=== PATIENT | male | born 1950 | race Caucasian/White ===

== ENCOUNTER → 2016-11-28 | Outpatient (CLI) | payer OTHER ==
[~2016-11-28] MED LIST: ALL300 PO; LISI-461 PO; MVC20 PO; POTASOL PO
[2016-11-28 13:08] LABS: BASO % 0.5 %; BASO ABS # 0.04 K/uL (0-0.2); COMPLETE YES; HEMATOCRIT 37.4 % (42-52); IG% 0.4 %; LYMPH % 19.9 %; LYMPH ABS # 1.62 K/uL (1.2-3.4); MEAN CELL VOLUME 95.2 fL (80-100); MEAN CORPUSCULAR HEMOGLOBIN 32.3 pg (25-34); MEAN PLATELET VOLUME 9.8 fL (7.4-10.4); MONO % 8.6 %; NEUT % 68.6 %; PLATELET COUNT 271 K/uL (130-400); RED BLOOD COUNT 3.93 M/uL (4.7-6.1); WHITE BLOOD COUNT 8.14 K/uL (4.8-10.8)
[2016-11-28 13:28] LABS: BLOOD UREA NITROGEN 11 mg/dl (7-18); CALCIUM 8.8 mg/dl (8.5-10.1); CARBON DIOXIDE 25 mmol/L (21-32); CHLORIDE 107 mmol/L (98-107); CREATININE 0.89 mg/dl (0.60-1.40); GLUCOSE 86 mg/dl (70-99); POTASSIUM 4.2 mmol/L (3.5-5.1); SODIUM 140 mmol/L (136-145)
== END | disposition home or self-care (01) ==
LOC: C.LABMFLN 08:25
PROVIDERS: ATTEND Urology
DX: Z01.812 Encounter for preprocedural laboratory examination (principal); N20.1 Calculus of ureter

== ENCOUNTER → 2016-12-06 | Outpatient (CLI) | payer OTHER ==
[2016-12-06 13:25] LABS: ALT/SGPT 56 U/L (12-78); AST/SGOT 53 U/L (15-37); BLOOD UREA NITROGEN 14 mg/dl (7-18); BUN/CREATININE RATIO 15.1 (10-20); CALCIUM 8.9 mg/dl (8.5-10.1); CARBON DIOXIDE 22 mmol/L (21-32); CHLORIDE 107 mmol/L (98-107); CHOLESTEROL 156 mg/dl (0-200); CREATININE 0.94 mg/dl (0.60-1.40); GLUCOSE 88 mg/dl (70-99); POTASSIUM 4.2 mmol/L (3.5-5.1); SODIUM 139 mmol/L (136-145); TRIGLYCERIDES 78 mg/dl (0-150); URIC ACID 3.6 mg/dl (2.6-7.2); VERY LOW DENSITY LIPOPROT CALC 16 mg/dl
[2016-12-06 13:29] LABS: CHOLESTEROL/HDL RATIO 2.2; HDL CHOLESTEROL 71 mg/dl; LDL CHOLESTEROL CALCULATED 69 mg/dl; PROSTATE SPECIFIC ANTIGEN 0.625 ng/ml (0.000-4.000)
== END | disposition home or self-care (01) ==
LOC: C.LABMFLN 07:00
PROVIDERS: ATTEND Family Medicine
DX: I10 Essential (primary) hypertension (principal); E78.2 Mixed hyperlipidemia; I73.9 Peripheral vascular disease, unspecified; N20.1 Calculus of ureter; Z12.5 Encounter for screening for malignant neoplasm of prostate

== ENCOUNTER → 2017-01-03 | Outpatient (CLI) | payer OTHER ==
[2017-01-03 13:15] LABS: BASO % 0.5 %; BASO ABS # 0.03 K/uL (0-0.2); COMPLETE YES; EOS % 2.5 %; HEMATOCRIT 36.7 % (42-52); IG% 0.3 %; LYMPH % 17.8 %; LYMPH ABS # 1.16 K/uL (1.2-3.4); MEAN CELL VOLUME 95.1 fL (80-100); MEAN CORPUSCULAR HEMOGLOBIN 32.4 pg (25-34); MEAN CORPUSCULAR HGB CONC 34.1 g/dl (32-36); MEAN PLATELET VOLUME 10.3 fL (7.4-10.4); MONO % 8.6 %; NEUT % 70.3 %; PLATELET COUNT 305 K/uL (130-400); RED BLOOD COUNT 3.86 M/uL (4.7-6.1)
[2017-01-03 13:18] LABS: BLOOD UREA NITROGEN 13 mg/dl (7-18); BUN/CREATININE RATIO 12.9 (10-20); CALCIUM 8.9 mg/dl (8.5-10.1); CARBON DIOXIDE 26 mmol/L (21-32); CHLORIDE 106 mmol/L (98-107); CREATININE 0.99 mg/dl (0.60-1.40); GLUCOSE 107 mg/dl (70-99); POTASSIUM 3.9 mmol/L (3.5-5.1); SODIUM 139 mmol/L (136-145)
== END | disposition home or self-care (01) ==
LOC: C.LABMFLN 08:13
PROVIDERS: ATTEND Urology
DX: Z01.812 Encounter for preprocedural laboratory examination (principal); N20.1 Calculus of ureter

== ENCOUNTER → 2017-01-14 | Outpatient (CLI) | payer OTHER ==
--- NOTE | 2017-01-14 10:19 | DIAGNOSTIC IMAGING REPORT ---
CT LUNG SCREENING, LOW DOSE WITH COMPUTER-AIDED DETECTION (CAD) CLINICAL HISTORY: COMPARISON STUDY: No previous studies for comparison. CT DOSE: 77.10 mGycm TECHNIQUE: Low-dose helical CT was acquired without intravenous contrast from lung apices to bases and reconstructed at 2.5 mm every 2 mm. CAD was utilized for this study. FINDINGS: Thyroid: Imaged portions of the thyroid gland are normal in appearance. Thoracic aorta: There is dilatation of the a sitting thoracic aorta which measures 42 mm Heart: There are dense coronary artery calcifications Lungs and pleural spaces: No pleural effusions are visualized. There are bilateral calcified granulomas. There is a 6 x 2 mm perifissural right upper lobe pulmonary nodule, a finding of very low suspicion. There are biapical densities, likely representing areas of pleuroparenchymal scarring. Mediastinum: There is no mediastinal lymphadenopathy. Lindsay: There is no evidence of pathologic adenopathy given the limitations of a noncontrast study Axilla: Clear. Upper abdomen: Partially visualized upper abdominal viscera is within normal limits. Skeletal structures: There are no lytic or blastic osseous lesions. IMPRESSION: 1. No suspicious pulmonary masses 2. Emphysema 3. Coronary artery calcifications 4. Mild dilatation of the ascending thoracic aorta CAD FINDINGS: Overall Lung RADS Category: 1 Lung RADS Management Recommendation: Lung-RADS 1: Continue annual screening in 12 months. Lung RADS Follow Up Date: 2018-01-14 Lung RADS Nodule ID: Electronically signed by: Kevyn Armendariz M.D. 01/14/2017 10:18 AM Dictated Date/Time: 01/14/2017 9:59 AM
== END | disposition home or self-care (01) ==
LOC: C.CTS 09:17
PROVIDERS: ATTEND Family Medicine
DX: Z87.891 Personal history of nicotine dependence (principal); J43.9 Emphysema, unspecified

== ENCOUNTER → 2017-07-17 | Outpatient (CLI) | payer OTHER ==
[2017-07-17 14:23] LABS: ALT/SGPT 51 U/L (12-78); AST/SGOT 43 U/L (15-37); BLOOD UREA NITROGEN 12 mg/dl (7-18); BUN/CREATININE RATIO 14.8 (10-20); CALCIUM 9.1 mg/dl (8.5-10.1); CARBON DIOXIDE 26 mmol/L (21-32); CHLORIDE 106 mmol/L (98-107); CHOLESTEROL 180 mg/dl (0-200); CREATININE 0.83 mg/dl (0.60-1.40); GLUCOSE 98 mg/dl (70-99); SODIUM 139 mmol/L (136-145)
[2017-07-17 14:28] LABS: CHOLESTEROL/HDL RATIO 2.8; HDL CHOLESTEROL 65 mg/dl; LDL CHOLESTEROL CALCULATED 77 mg/dl; TRIGLYCERIDES 190 mg/dl (0-150); VERY LOW DENSITY LIPOPROT CALC 38 mg/dl
== END ==
LOC: C.LABMFLN 07:03
PROVIDERS: ATTEND Family Medicine
DX: E78.2 Mixed hyperlipidemia (principal); I10 Essential (primary) hypertension; N20.1 Calculus of ureter; Z12.5 Encounter for screening for malignant neoplasm of prostate

== ENCOUNTER → 2018-01-15 | Outpatient (CLI) | payer OTHER ==
--- NOTE | 2018-01-15 10:00 | DIAGNOSTIC IMAGING REPORT ---
CT LUNG SCREENING, LOW DOSE WITH COMPUTER-AIDED DETECTION (CAD) CLINICAL HISTORY: 67 years-old Male with FORMER SMOKER LOW DOSE SCREENING. Screening exam. History of emphysema and tobacco use COMPARISON STUDY: Low-dose lung CT 01/14/2017 CT DOSE: 77.10 mGycm TECHNIQUE: Low-dose helical CT was acquired without intravenous contrast from lung apices to bases and reconstructed at 2.5 mm every 2 mm. CAD was utilized for this study. A dose lowering technique was utilized adhering to the principles of ALARA. FINDINGS: No dominant thyroid nodule identified. No pathologic adenopathy of the chest identified. Heart is normal in size without pericardial effusion. Three-vessel distribution of extensive coronary arterial disease. Moderate atherosclerosis of the thoracic aorta. There is tortuosity of the descending thoracic aorta and there is fusiform dilation of the ascending thoracic aorta measuring 4.3 x 4.3 cm, previously measuring up to 4.2 cm. The imaged unopacified pulmonary arterial tree is unremarkable. Moderate upper lobe predominant centrilobular emphysema. Calcified granuloma of the right upper lobe subcentimeter in size. Calcified granuloma left lower lobe is also noted. 4 mm groundglass nodule of the left upper lobe, image 64 series 3. Mild biapical pleural-parenchymal scarring. 4 mm area of fissural lymph node abuts the minor fissure, image 140 series 3, likely benign. No suspicious pulmonary nodules or masses are identified. There are calcifications of the tracheobronchial tree. Central airways appear patent. There is no acute abnormality of the imaged upper abdomen. 3 mm nonobstructing calculus of the superior pole left kidney. Mild bilateral gynecomastia. Bones appear intact. Multilevel endplate spurring and facet arthrosis of the thoracic spine. Severe intervertebral disc space narrowing at C6-C7. IMPRESSION: 1. 4 mm groundglass nodule of the left upper lobe appears slightly more apparent than on comparison study dated 01/14/2017 however is unchanged in size. Attention at follow-up recommended. 2. No additional pulmonary nodules identified. 3. Emphysema. 4. Prior granulomatous disease. 5. Mild fusiform aneurysm dilation of the ascending thoracic aorta appears unchanged, 4.3 cm. CAD FINDINGS: Overall Lung RADS Category: 2 Lung RADS Management Recommendation: Continue annual lung cancer screening. Lung RADS Follow Up Date: 2019-01-15 Lung RADS Nodule ID: [id number] The above report was generated using voice recognition software. It may contain grammatical, syntax or spelling errors. Electronically signed by: Ari Dorado M.D. 01/15/2018 9:59 AM Dictated Date/Time: 01/15/2018 9:34 AM
== END | disposition home or self-care (01) ==
LOC: C.CTS 09:17
PROVIDERS: ATTEND Family Medicine
DX: Z87.891 Personal history of nicotine dependence (principal); R91.1 Solitary pulmonary nodule; J43.9 Emphysema, unspecified

== ENCOUNTER → 2018-01-17 | Outpatient (CLI) | payer OTHER ==
[2018-01-17 14:00] LABS: ALT/SGPT 64 U/L (12-78); BLOOD UREA NITROGEN 13 mg/dl (7-18); CARBON DIOXIDE 27 mmol/L (21-32); SODIUM 139 mmol/L (136-145)
[2018-01-17 14:10] LABS: CHOLESTEROL 170 mg/dl (0-200); CREATININE 0.86 mg/dl (0.60-1.40); GLUCOSE 95 mg/dl (70-99); LDL CHOLESTEROL CALCULATED 80 mg/dl
[2018-01-17 14:30] LABS: AST/SGOT 51 U/L (15-37)
== END | disposition home or self-care (01) ==
LOC: C.LABMFLN 07:01
PROVIDERS: ATTEND Family Medicine
DX: I10 Essential (primary) hypertension (principal); E78.2 Mixed hyperlipidemia; I73.9 Peripheral vascular disease, unspecified

== ENCOUNTER 2021-02-02 20:40 | Observation (INO) ==
[2021-02-02 21:03] LABS: Basophils # (auto) 0.03 K/uL (0-0.2); Basophils % (auto) 0.4 %; Eosinophils # (auto) 0.13 K/uL (0-0.5); Eosinophils % (auto) 1.7 %; Hematocrit (blood only) 39.3 % (42-52); Hemoglobin 13.4 g/dL (14.0-18.0); Immature Granulocytes # (auto) 0.03 K/uL (0.00-0.02); Immature Granulocytes % (auto) 0.4 %; Lymphocytes # (auto) 1.34 K/uL (1.2-3.4); Lymphocytes % (auto) 17.7 %; Mean Corpuscular Hemoglobin 32.6 pg (25-34); Mean Corpuscular Hgb Conc 34.1 g/dL (32-36); Mean Corpuscular Volume 95.6 fL (80-100); Mean Platelet Volume 9.3 fL (7.4-10.4); Monocytes # (auto) 0.55 K/uL (0.11-0.59); Monocytes % (auto) 7.3 %; Neutrophils # (auto) 5.47 K/uL (1.4-6.5); Neutrophils % (auto) 72.5 %; Platelet Count 264 K/uL (130-400); RDW Coefficient of Variation 12.5 % (11.5-14.5); RDW Standard Deviation 43.6 fL (36.4-46.3); Red Blood Count 4.11 M/uL (4.7-6.1); White Blood Count 7.55 K/uL (4.8-10.8)
[2021-02-02] MEDS ORDERED: OPTIRAY 320 125ml IV ONE (21:10)
[2021-02-02 21:13] LABS: iSTAT Creatinine 0.9 mg/dl (0.6-1.3); iSTAT Hemoglobin 13.3 g/dl (14.0-18.0); iSTAT Ionized Calcium 1.22 mmol/l (1.12-1.32); iSTAT Potassium 4.1 mmol/L (3.3-5.0)
[2021-02-02 21:17] LABS: Partial Thromboplastin Time 25.1 Seconds (21.0-31.0); Prothrombin Time 9.9 Seconds (9.0-12.0)
[2021-02-02 21:31] LABS: Alanine Aminotransferase 31 U/L (12-78); Albumin Level 3.7 gm/dl (3.4-5.0); Aspartate Aminotransferase 21 U/L (15-37); BUN Creatinine Ratio 13.9 (10-20); Blood Urea Nitrogen 13 mg/dl (7-18); Calcium 9.1 mg/dl (8.5-10.1); Carbon Dioxide 25 mmol/L (21-32); Chloride 109 mmol/L (98-107); Est GFR (African American) 91.8; Est GFR (Non-African American) 79.2; Glucose 103 mg/dl (70-99); Magnesium 1.9 mg/dl (1.8-2.4); Sodium 139 mmol/L (136-145)
[2021-02-02 21:36] LABS: Albumin Globulin Ratio 1.1 (0.9-2); Alkaline Phosphatase 73 U/L (45-117); Bilirubin,Total 0.2 mg/dl (0.2-1); Globulin 3.5 gm/dl (2.5-4.0); Total Protein 7.2 gm/dl (6.4-8.2); Troponin I < 0.015 ng/ml (0-0.045)
[2021-02-02] MEDS ORDERED: GI COCKTAIL ED USE PO ONE (22:20)
[2021-02-02] MEDS ORDERED: KETOROLAC TROMETHAMINE 15 MG/ML VIAL IV STA (22:20)
[2021-02-02] MEDS ORDERED: LORazepam 0.5 MG/1 ML VIAL IV STA (22:20)
[2021-02-02 23:41] LABS: Influenza A virus by PCR Negative (Neg); Influenza B virus by PCR Negative (Neg); RSV by PCR Negative (Neg); SARS CoV2 RNA(COVID-19) InHosp NEGATIVE (Negative)
--- NOTE | 2021-02-02 23:53 | Emergency Department Note ---
History of Present Illness General Chief complaint: Stroke/CVA Symptoms Stated complaint: L ARM AND R NUMBNESS Time Seen by Provider: 02/02/21 20:52 History of Present Illness Provider complaint: Left upper extremity weakness and numbness Onset (ago): hour(s) (13) Location: upper extremity and left Radiation: non-radiation Pain Consistency: + other (Improved) Maximum Pain Intensity: 7 Associated symptoms: + chest pain, + headaches and + weakness; no confusion, no cough, no fever/chills, no malaise, no nausea/vomiting, no rash, no seizure and no shortness of breath 70-year-old male presents emergency department for left upper extremity weakness. Patient reports his symptoms began at 730 this morning. Patient reports at 730 this morning he was having difficulty using his left hand to button her shirt and difficulty picking up things with his left upper extremity. He also reports some paresthesias in his upper extremity. Patient also reports some chest pain. Patient states he saw his PCP earlier today he told him to take nitro for possible chest pain. The PCP did seem to think that it was due to GERD the patient was experiencing chest discomfort. Patient is currently reporting headache. Patient is not on any blood thinners. No seizures. No fevers. No loss of taste or smell. Patient did take 4 baby aspirin prior to arrival. Home Medications Medication Instructions Recorded Confirmed Type latanoprost 0.005 % eye drops 1 drops OP DAILY ml 07/22/19 02/02/21 History allopurinol 300 mg tablet 300 mg PO DAILY #90 tab 07/24/19 02/02/21 Rx cilostazol 100 mg tablet 100 mg PO DAILY tab 02/02/20 02/02/21 History lisinopril 20 mg tablet 20 mg PO DAILY #90 tab 01/11/21 02/02/21 Rx lovastatin 20 mg tablet 20 mg PO DAILY #90 tab 01/11/21 02/02/21 Rx nitroglycerin 0.4 mg sublingual 0.4 mg SUBLINGUAL Q5M PRN #25 tab 02/02/21 02/02/21 Rx tablet omeprazole 20 mg capsule,delayed 20 mg PO DAILY #30 cap 02/02/21 02/02/21 Rx release Allergies Allergy/AdvReac Type Severity Reaction Status Date / Time No Known Allergies Allergy Unverified 02/02/21 21:26 Past Med/Surg History Medical History Aorta disorder Carotid bruit Chest pain Dyslipidemia History of smoking greater than 50 pack years HTN (hypertension) Hyperuricemia PAD (peripheral artery disease) Pulmonary nodule, left S/P extracorporeal shock wave therapy Ureteral calculi Surgical History History of cystoscopy Family History Other No pertinent family history Social History Smoking Status: Never smoker Age Started Using Tobacco: 19; Age Quit Using Tobacco: 65; packs per day: 2; Years Smoked: 46; Number of Years Since Quit: 4; Second Hand Exposure: Yes; Hx Alcohol Use: No Hx Substance Use: No Feels Safe at Home: Yes Childhood Exposure to Second-Hand Smoke: Yes Seatbelt Use: always Review of Systems A total of 10 systems reviewed and were otherwise negative Physical Exam Vital Signs Vital Signs - 24 hr 02/02/21 20:43 02/02/21 20:51 02/02/21 21:27 Temperature 37.1 C Temperature Source Temporal Artery Scan Pulse Rate 99 H Pulse Rate [Right] 88 Pulse Rhythm [Right] Regular Pulse Strength [Right] Normal Respiratory Rate 18 16 Respiratory Effort / Characteristics Non-Labored Spontaneous Non-Labored Spontaneous Respiratory Depth Normal Normal Blood Pressure 112/62 Blood Pressure [Right Arm] 120/70 Blood Pressure Mean 78 Blood Pressure Mean [Right Arm] 86 Blood Pressure Position [Right Arm] Lying Pulse Oximetry 96 97 96 Oxygen Delivery Method Room Air Room Air Room Air Sepsis Recent Fever Within 48 Hours No Sepsis New/Unexplained Change in Mental Status No Sepsis Action Taken by Nursing No Action Required Physical Exam GENERAL: He is oriented to person, place, and time. He appears well-developed and well-nourished. He does not appear distressed. HENT: Exam performed. - Head: Normocephalic and atraumatic. - Right Ear: External ear normal. No mastoid tenderness. - Left Ear: External ear normal. No mastoid tenderness. - Mouth/Throat: The oropharynx is clear and moist. No trismus in the jaw. No dental abscesses or uvula swelling. No oropharyngeal exudate or tonsillar abscesses. EYES: Conjunctivae and EOM are normal. Pupils are equal, round, and reactive to light. Right eye exhibits no discharge. Left eye exhibits no discharge. No scleral icterus. NECK: Normal range of motion. Neck supple. No JVD present. No spinous process tenderness present. No carotid bruit present. No rigidity. No tracheal deviation and normal range of motion present. No Brudzinski's sign and no Kernig's sign noted. CV: Normal rate, regular rhythm, normal heart sounds and intact distal pulses. There is no peripheral edema. Palpable radial pulses bue. PULM/CHEST: Effort normal and breath sounds normal. No respiratory distress. No stridor. He has no wheezes. He has no rales. - Chest Wall: He exhibits no tenderness. ABD: The abdomen is soft. Bowel sounds are normal. He has no distension. No mass is present. There is no tenderness. There is no rebound, no guarding, no Mu rphy's sign and no tenderness at McBurney's point. Rovsig negative. MUSC/SKEL: Normal range of motion. There is no peripheral edema, tenderness or deformity. LYMPH: No cervical adenopathy. NEURO: He is alert and oriented to person, place, and time. He has normal strength. No cranial nerve deficit or sensory deficit. Coordination and gait normal. GCS eye subscore is 4. GCS verbal subscore is 5. GCS motor subscore is 6. Cerebellar tests wnl. NIHSS: 0 SKIN: Skin is warm and dry. He is not diaphoretic. PSYCH: He has a normal mood and affect. Behavior is normal. Judgment and thought content normal. Course Course 2051: The patient was evaluated in room A1. A complete history and physical exam was performed Cardiac monitoring: An order was placed for continuous cardiac monitoring. The monitor shows a rate of 90 with sinus rhythm Patient is not a TPA candidate given his onset of symptoms for more than 12 hours ago and his left upper extremity weakness as resolved on physical exam, thus no code stroke was called. 2214: Vital signs stable.Labs and imaging are within normal limits. [facility]. Administered Medications Discontinued Medications Al Hydrox/Mg Hydrox/Simethicone (Gi Cocktail Ed Use) 1 dose PO ONE ONE Stop: 02/02/21 22:21 Last Admin: 02/02/21 22:36 Dose: 1 dose Documented by: [id number] Lorazepam (Ativan) 0.5 mg in 1 mls @ 1 mls/min IV NOW STA Stop: 02/02/21 22:21 Last Admin: 02/02/21 22:36 Dose: 1 mls/min Documented by: [id number] Ioversol (Optiray 320 125ml) 117 ml IV ONCE ONE Stop: 02/02/21 21:11 Last Admin: 02/02/21 21:11 Dose: 117 ml Documented by: [id number] Ketorolac Tromethamine (Ketorolac Tromethamine 15 Mg/Ml Vial) 15 mg IV NOW STA Stop: 02/02/21 22:21 Last Admin: 02/02/21 22:36 Dose: 15 mg Documented by: [id number] Medical Decision Making Laboratory Data Result diagrams: 02/02/21 20:50 02/02/21 20:50 Lab Results 02/02/21 02/02/21 02/02/21 Range/Units 20:50 20:50 20:50 WBC 7.55 (4.8-10.8) K/uL RBC 4.11 L (4.7-6.1) M/uL Hgb 13.4 L (14.0-18.0) g/dL POC Hgb (14.0-18.0) g/dl Hct 39.3 L (42-52) % POC Hct (42-52) % MCV 95.6 (80-100) fL MCH 32.6 (25-34) pg MCHC 34.1 (32-36) g/dL RDW Std Deviation 43.6 (36.4-46.3) fL RDW Coeff of Terry 12.5 (11.5-14.5) % Plt Count 264 (130-400) K/uL MPV 9.3 (7.4-10.4) fL Immature Gran % (Auto) 0.4 % Neut % (Auto) 72.5 % Lymph % (Auto) 17.7 % Douglas % (Auto) 7.3 % Eos % (Auto) 1.7 % Baso % (Auto) 0.4 % Neut # (Auto) 5.47 (1.4-6.5) K/uL Lymph # (Auto) 1.34 (1.2-3.4) K/uL Douglas # (Auto) 0.55 (0.11-0.59) K/uL Eos # (Auto) 0.13 (0-0.5) K/uL Baso # (Auto) 0.03 (0-0.2) K/uL Immature Gran # (Auto) 0.03 H (0.00-0.02) K/uL PT 9.9 (9.0-12.0) Seconds INR 1.0 (0.9-1.1) APTT 25.1 (21.0-31.0) Seconds PTT Ratio 1.0 POC Sodium (135-144) mmol/L Sodium 139 (136-145) mmol/L POC Potassium (3.3-5.0) mmol/L Potassium 4.0 (3.5-5.1) mmol/L POC Chloride (101-112) mmol/L Chloride 109 H (98-107) mmol/L Carbon Dioxide 25 (21-32) mmol/L POC Total CO2 (24-31) mmol/L Anion Gap 5.0 (3-11) POC Anion Gap (16-25) mmol/L POC BUN (7-18) mg/dl BUN 13 (7-18) mg/dl Creatinine 0.96 (0.6-1.4) mg/dl POC Creatinine (0.6-1.3) mg/dl Est Cr Clr Drug Dosing 66.0 ml/min Est GFR ( Amer) 91.8 Est GFR (Non-Af Amer) 79.2 BUN/Creatinine Ratio 13.9 (10-20) Glucose 103 H (70-99) mg/dl POC Glucose (70-99) mg/dl POC Glucose (other) (70-99) mg/dl Calcium 9.1 (8.5-10.1) mg/dl POC Ioniz Calcium Everett (1.12-1.32) mmol/l Magnesium 1.9 (1.8-2.4) mg/dl Total Bilirubin 0.2 (0.2-1) mg/dl AST 21 (15-37) U/L ALT 31 (12-78) U/L Alkaline Phosphatase 73 (45-117) U/L Troponin I < 0.015 (0-0.045) ng/ml Total Protein 7.2 (6.4-8.2) gm/dl Albumin 3.7 (3.4-5.0) gm/dl Globulin 3.5 (2.5-4.0) gm/dl Albumin/Globulin Ratio 1.1 (0.9-2) COVID-19 Eval Order SARS-CoV-2 (PCR) (Negative) Influenza Type A (PCR) (Neg) Influenza Type B (PCR) (Neg) RSV (RT-PCR) (Neg) Blood Type Antibody Screen 02/02/21 02/02/21 02/02/21 Range/Units 20:51 20:59 21:00 WBC (4.8-10.8) K/uL RBC (4.7-6.1) M/uL Hgb (14.0-18.0) g/dL POC Hgb 13.3 L (14.0-18.0) g/dl Hct (42-52) % POC Hct 39 L (42-52) % MCV (80-100) fL MCH (25-34) pg MCHC (32-36) g/dL RDW Std Deviation (36.4-46.3) fL RDW Coeff of Terry (11.5-14.5) % Plt Count (130-400) K/uL MPV (7.4-10.4) fL Immature Gran % (Auto) % Neut % (Auto) % Lymph % (Auto) % Douglas % (Auto) % Eos % (Auto) % Baso % (Auto) % Neut # (Auto) (1.4-6.5) K/uL Lymph # (Auto) (1.2-3.4) K/uL Douglas # (Auto) (0.11-0.59) K/uL Eos # (Auto) (0-0.5) K/uL Baso # (Auto) (0-0.2) K/uL Immature Gran # (Auto) (0.00-0.02) K/uL PT (9.0-12.0) Seconds INR (0.9-1.1) APTT (21.0-31.0) Seconds PTT Ratio POC Sodium 141 (135-144) mmol/L Sodium (136-145) mmol/L POC Potassium 4.1 (3.3-5.0) mmol/L Potassium (3.5-5.1) mmol/L POC Chloride 107 (101-112) mmol/L Chloride (98-107) mmol/L Carbon Dioxide (21-32) mmol/L POC Total CO2 27 (24-31) mmol/L Anion Gap (3-11) POC Anion Gap 12.0 L (16-25) mmol/L POC BUN 13 (7-18) mg/dl BUN (7-18) mg/dl Creatinine (0.6-1.4) mg/dl POC Creatinine 0.9 (0.6-1.3) mg/dl Est Cr Clr Drug Dosing ml/min Est GFR ( Amer) Est GFR (Non-Af Amer) BUN/Creatinine Ratio (10-20) Glucose (70-99) mg/dl POC Glucose 105 H (70-99) mg/dl POC Glucose (other) 103 H (70-99) mg/dl Calcium (8.5-10.1) mg/dl POC Ioniz Calcium Everett 1.22 (1.12-1.32) mmol/l Magnesium (1.8-2.4) mg/dl Total Bilirubin (0.2-1) mg/dl AST (15-37) U/L ALT (12-78) U/L Alkaline Phosphatase (45-117) U/L Troponin I (0-0.045) ng/ml Total Protein (6.4-8.2) gm/dl Albumin (3.4-5.0) gm/dl Globulin (2.5-4.0) gm/dl Albumin/Globulin Ratio (0.9-2) COVID-19 Eval Order SARS-CoV-2 (PCR) (Negative) Influenza Type A (PCR) (Neg) Influenza Type B (PCR) (Neg) RSV (RT-PCR) (Neg) Blood Type O Negative Antibody Screen NEGATIVE 02/02/21 02/02/21 Range/Units 22:30 22:30 WBC (4.8-10.8) K/uL RBC (4.7-6.1) M/uL Hgb (14.0-18.0) g/dL POC Hgb (14.0-18.0) g/dl Hct (42-52) % POC Hct (42-52) % MCV (80-100) fL MCH (25-34) pg MCHC (32-36) g/dL RDW Std Deviation (36.4-46.3) fL RDW Coeff of Terry (11.5-14.5) % Plt Count (130-400) K/uL MPV (7.4-10.4) fL Immature Gran % (Auto) % Neut % (Auto) % Lymph % (Auto) % Douglas % (Auto) % Eos % (Auto) % Baso % (Auto) % Neut # (Auto) (1.4-6.5) K/uL Lymph # (Auto) (1.2-3.4) K/uL Douglas # (Auto) (0.11-0.59) K/uL Eos # (Auto) (0-0.5) K/uL Baso # (Auto) (0-0.2) K/uL Immature Gran # (Auto) (0.00-0.02) K/uL PT (9.0-12.0) Seconds INR (0.9-1.1) APTT (21.0-31.0) Seconds PTT Ratio POC Sodium (135-144) mmol/L Sodium (136-145) mmol/L POC Potassium (3.3-5.0) mmol/L Potassium (3.5-5.1) mmol/L POC Chloride (101-112) mmol/L Chloride (98-107) mmol/L Carbon Dioxide (21-32) mmol/L POC Total CO2 (24-31) mmol/L Anion Gap (3-11) POC Anion Gap (16-25) mmol/L POC BUN (7-18) mg/dl BUN (7-18) mg/dl Creatinine (0.6-1.4) mg/dl POC Creatinine (0.6-1.3) mg/dl Est Cr Clr Drug Dosing ml/min Est GFR ( Amer) Est GFR (Non-Af Amer) BUN/Creatinine Ratio (10-20) Glucose (70-99) mg/dl POC Glucose (70-99) mg/dl POC Glucose (other) (70-99) mg/dl Calcium (8.5-10.1) mg/dl POC Ioniz Calcium Everett (1.12-1.32) mmol/l Magnesium (1.8-2.4) mg/dl Total Bilirubin (0.2-1) mg/dl AST (15-37) U/L ALT (12-78) U/L Alkaline Phosphatase (45-117) U/L Troponin I (0-0.045) ng/ml Total Protein (6.4-8.2) gm/dl Albumin (3.4-5.0) gm/dl Globulin (2.5-4.0) gm/dl Albumin/Globulin Ratio (0.9-2) COVID-19 Eval Order CovFluRsv at [facility] SARS-CoV-2 (PCR) NEGATIVE (Negative) Influenza Type A (PCR) Negative (Neg) Influenza Type B (PCR) Negative (Neg) RSV (RT-PCR) Negative (Neg) Blood Type Antibody Screen Imaging Data Radiologist's Impression: Preliminary Findings Only See Final Report For Complete Findings CTA NECK: Emphysema. Atherosclerosis of the aortic arch. Conventional branch anatomy. Widely patent origins of the great vessels. Common carotid arteries are patent and normal in caliber. Internal carotid arteries are patent and normal in caliber. Vertebral arteries are patent and normal in caliber. Right thyroid lobe nodule measuring 11 mm. Radiologist: Jamison Kaur M.D. Study ready at 21:42 and initial results transmitted at 21:56 Preliminary Findings Only See Final Report For Complete Findings CTA HEAD: No proximal arterial occlusion or aneurysm. Atherosclerosis of the internal carotid arteries causing mild cavernous-segment and minimal supraclinoid-segment narrowing. Radiologist: Darvin Harrell M.D. Study ready at 21:30 and initial results transmitted at 22:12 Preliminary Findings Only See Final Report For Complete Findings CT HEAD: No acute intracranial process. Small chronic lacunar infarct of the right caudate nucleus. Involutional and microvascular ischemic changes. Right maxillary sinus mucosal thickening. Radiologist: Darvin Harrell M.D. Study ready at 21:30 and initial results transmitted at 22:09 ECG Data Indication: + other (code cva) Rate (beats per minute): 94 Rhythm: + normal sinus ECG Intervals/blocks: + Normal QRS, + Normal AL and + Normal QT-c ECG ST segments: + Normal ST segments MDM Narrative 2051: The patient was evaluated in room A1. A complete history and physical exam was performed Cardiac monitoring: An order was placed for continuous cardiac monitoring. The monitor shows a rate of 90 with sinus rhythm Patient is not a TPA candidate given his onset of symptoms for more than 12 hours ago and his left upper extremity weakness as resolved on physical exam, thus no code stroke was called. 2215: Vital signs stable.Labs and imaging are within normal limits. [facility] Magdaleno notified. Impression & Plan TIA (transient ischemic attack) Discharge Plan Visit Data Chief Complaint: Stroke/CVA Symptoms Stated Complaint: L ARM AND R NUMBNESS ED Provider: Jesus Bo Discharge Problem: TIA (transient ischemic attack) Patient Disposition: Admitted As Inpatient Forms Stand Alone Forms: [facility] Prescriptions Prescriptions: No Action allopurinol 300 mg tablet 300 mg PO DAILY Qty: 90 RF: 3 lisinopril 20 mg tablet 20 mg PO DAILY Qty: 90 RF: 3 lovastatin 20 mg tablet 20 mg PO DAILY Qty: 90 RF: 3 latanoprost 0.005 % drops 1 drops OP DAILY RF: 0 omeprazole 20 mg capsule,delayed release(DR/EC) 20 mg PO DAILY Qty: 30 RF: 5 nitroglycerin 0.4 mg tablet, sublingual 0.4 mg sublingual Q5M PRN (Reason: chest pain) Qty: 25 RF: 0 cilostazol 100 mg tablet 100 mg PO DAILY RF: 0 Referrals Referrals: Anthony Bazan MD [Primary Care Provider] -
--- NOTE | 2021-02-03 00:36 | History & Physical Report ---
Date of Service February 03, 2021 Assessment & Plan (1) Paresthesias with subjective weakness: Silvio Singleton is a 70-year-old male with PMH significant for hypertension, hyperlipidemia, hyperuricemia, peripheral artery disease, aortic dilatation; who presented to the ER following concerns for left arm and leg numbness/tingling over the last day. Left paresthesias with subjective weakness: -Paresthesias of left arm and leg for over 12 hours prior to presentation to ED, resolved in ED -Unknown etiology at this time however known history of peripheral artery disease with demonstrations of central atherosclerosis on imaging -CT head demonstrating no acute intracranial process, small chronic appearing lacunar infarct, involutional changes -CTA neck demonstrating no proximal arterial occlusion or aneurysm, atherosclerosis of the internal carotid arteries with mild cavernous and supracl inoid narrowing -MRI ordered -No significant electrolyte abnormalities Peripheral artery disease: -Patient with known history of peripheral artery disease treated with home regimen of cilostazol -Uncertain if this could be contributing to paresthesias felt in upper and lower extremities based off continued worsening of atherosclerosis Hypertension: -Continue home regimen of lisinopril 20 mg daily Dyslipidemia: -Home regimen of lovastatin 20 mg daily -Last lipid levels on 02/02 2020 demonstrating good control of LDL-C, triglycerides, total cholesterol -Lipid levels in a.m. Hyperuricemia: -Known history of hyperuricemia well-controlled on allopurinol 300 mg daily -Continue home regimen Thyroid nodule: -11 mm right thyroid nodule incidentally noticed on CTA of neck -TSH in a.m. Diet: Heart healthy CODE STATUS: Full code (2) PAD (peripheral artery disease): (3) HTN (hypertension): (4) Thyroid nodule: (5) Dyslipidemia: (6) Hyperuricemia: History of Present Illness Primary Care Provider: Anthony Bazan MD Silvio Singleton is a 70-year-old male with PMH significant for hypertension, hyperlipidemia, hyperuricemia, peripheral artery disease, aortic dilatation; who presented to the ER following concerns for left arm and leg numbness/tingling over the last day. Patient first noticed the symptoms early yesterday morning predominantly in his left upper extremity, but also began to notice some numbness and tingling in his leg in addition to his arm. [place] like he had some decreased strength in his arm and leg, and was consistently bumping into items on his left hand side without necessarily feeling them. This numbness/tingling extended from his shoulder into his hand with no area spared, and from the groin to the toes with no area spared. He additionally noted that over the last several weeks he has been having some burning type central chest pain that he attributed more to concern for reflux. Did not have the same substernal chest pain/burning today, however was concerned that this numbness tingling in his arm and leg might have been a result of something related with his heart. Took a sublingual nitroglycerin that did not alleviate this numbness and tingling and that is why he ultimately decided to come to the ER. Presently denies any chest pain, burning sensation, nausea, vomiting, headache, numbness or tingling of upper or lower extremity, changes in strength, difficulty moving upper or lower extremities, changes in sensation, lightheadedness, dizziness, changes in vision. Allergies Allergy/AdvReac Type Severity Reaction Status Date / Time No Known Allergies Allergy Unverified 02/02/21 21:26 Home Medications Medication Instructions Recorded Confirmed Type latanoprost 0.005 % eye drops 1 drops OP DAILY ml 07/22/19 02/02/21 History allopurinol 300 mg tablet 300 mg PO DAILY #90 tab 07/24/19 02/02/21 Rx cilostazol 100 mg tablet 100 mg PO DAILY tab 02/02/20 02/02/21 History lisinopril 20 mg tablet 20 mg PO DAILY #90 tab 01/11/21 02/02/21 Rx omeprazole 20 mg capsule,delayed 20 mg PO DAILY #30 cap 02/02/21 02/02/21 Rx release aspirin 81 mg PO QAM #30 tab 02/03/21 Rx atorvastatin 40 mg PO DAILY #30 tab 02/03/21 Rx Past Med/Surg History Medical History (Updated 02/04/21 @ 00:07 by Dinah Chavarria) Anemia Aorta disorder Carotid bruit Dyslipidemia GERD (gastroesophageal reflux disease) History of smoking greater than 50 pack years HTN (hypertension) Hyperuricemia PAD (peripheral artery disease) Pulmonary nodule, left S/P extracorporeal shock wave therapy Surgical History History of cystoscopy Family History Other No pertinent family history Social History Smoking Status: Former smoker Age Started Using Tobacco: 19; Age Quit Using Tobacco: 65; packs per day: 2; Years Smoked: 46; Number of Years Since Quit: 4; Second Hand Exposure: No; Hx Alcohol Use: No Hx Substance Use: No Preferred Language: Cuban [employer] C[employer] Required: No Beliefs That Will Affect Care: None Current Living Situation: Spouse Feels Safe at Home: Yes Childhood Exposure to Second-Hand Smoke: Yes Seatbelt Use: always Assistive Devices: None Review of Systems Review of Systems: All systems reviewed & are unremarkable except as noted in HPI & below Physical Exam Constitutional: WD/WN, vitals as above Eyes: PERRL, conjunctivae normal, anicteric sclerae ENMT: external ear and nose normal, oropharynx normal Respiratory: normal respiratory effort, lungs clear to auscultation Cardiovascular: Rate/Rhythm: regular rate and regular rhythm Heart Sounds: no gallop, no murmur and no cardiac rub Vessels: normal peripheral pulses; no JVD Extremities: no edema Gastrointestinal (Abdomen): normal bowel sounds, soft, nontender, no hepatosplenomegaly Musculoskeletal: no cyanosis or clubbing, extremities motor strength 5/5 Neurologic: PERRL, EOMI, accommodation nl, no face palsy, no dysarthria CN's II-XI intact bilaterally, deep tendon reflexes 2+ bilaterally and moves all extremities; no focal motor deficits Psychiatric: Orientation: alert and oriented x 3 Lymphatic: no cervical or axillary lymphadenopathy Results & Data Results & Data ([facility]) Vital Signs (Past 12 Hours) Vital Signs Temp Pulse Pulse Resp BP BP Pulse Ox 02/02/21 23:50 80 19 80 L 02/02/21 23:40 80 20 02/02/21 23:30 85 19 02/02/21 23:20 79 22 02/02/21 23:10 85 23 02/02/21 23:00 79 23 02/02/21 22:58 77 22 123/75 02/02/21 22:50 77 22 02/02/21 22:40 79 29 H 02/02/21 22:30 82 16 02/02/21 22:20 78 25 H 02/02/21 22:10 81 21 02/02/21 22:00 87 25 H 02/02/21 21:50 85 24 02/02/21 21:40 87 22 02/02/21 21:30 87 19 02/02/21 21:27 88 16 120/70 96 02/02/21 21:21 84 19 120/70 96 02/02/21 21:20 89 26 H 96 02/02/21 21:03 88 23 96 02/02/21 21:00 88 18 126/73 96 02/02/21 20:51 97 02/02/21 20:43 37.1 C 99 H 18 112/62 96 Laboratory Results 02/02/21 02/02/21 02/02/21 Range/Units 22:30 22:30 21:00 WBC (4.8-10.8) K/uL RBC (4.7-6.1) M/uL Hgb (14.0-18.0) g/dL POC Hgb 13.3 L (14.0-18.0) g/dl Hct (42-52) % POC Hct 39 L (42-52) % MCV (80-100) fL MCH (25-34) pg MCHC (32-36) g/dL RDW Std Deviation (36.4-46.3) fL RDW Coeff of Terry (11.5-14.5) % Plt Count (130-400) K/uL MPV (7.4-10.4) fL Immature Gran % (Auto) % Neut % (Auto) % Lymph % (Auto) % [place] % (Auto) % Eos % (Auto) % Baso % (Auto) % Neut # (Auto) (1.4-6.5) K/uL Lymph # (Auto) (1.2-3.4) K/uL [place] # (Auto) (0.11-0.59) K/uL Eos # (Auto) (0-0.5) K/uL Baso # (Auto) (0-0.2) K/uL Immature Gran # (Auto) (0.00-0.02) K/uL PT (9.0-12.0) Seconds INR (0.9-1.1) APTT (21.0-31.0) Seconds PTT Ratio POC Sodium 141 (135-144) mmol/L Sodium (136-145) mmol/L POC Potassium 4.1 (3.3-5.0) mmol/L Potassium (3.5-5.1) mmol/L POC Chloride 107 (101-112) mmol/L Chloride (98-107) mmol/L Carbon Dioxide (21-32) mmol/L POC Total CO2 27 (24-31) mmol/L Anion Gap (3-11) POC Anion Gap 12.0 L (16-25) mmol/L POC BUN 13 (7-18) mg/dl BUN (7-18) mg/dl Creatinine (0.6-1.4) mg/dl POC Creatinine 0.9 (0.6-1.3) mg/dl Est Cr Clr Drug Dosing ml/min Est GFR ( Amer) Est GFR (Non-Af Amer) BUN/Creatinine Ratio (10-20) Glucose (70-99) mg/dl POC Glucose (70-99) mg/dl POC Glucose (other) 103 H (70-99) mg/dl Calcium (8.5-10.1) mg/dl POC Ioniz Calcium [place] 1.22 (1.12-1.32) mmol/l Magnesium (1.8-2.4) mg/dl Total Bilirubin (0.2-1) mg/dl AST (15-37) U/L ALT (12-78) U/L Alkaline Phosphatase (45-117) U/L Troponin I (0-0.045) ng/ml Total Protein (6.4-8.2) gm/dl Albumin (3.4-5.0) gm/dl Globulin (2.5-4.0) gm/dl Albumin/Globulin Ratio (0.9-2) COVID-19 Eval Order CovFluRsv at [facility] SARS-CoV-2 (PCR) NEGATIVE (Negative) Influenza Type A (PCR) Negative (Neg) Influenza Type B (PCR) Negative (Neg) RSV (RT-PCR) Negative (Neg) Blood Type Antibody Screen 02/02/21 02/02/21 02/02/21 Range/Units 20:59 20:51 20:50 WBC (4.8-10.8) K/uL RBC (4.7-6.1) M/uL Hgb (14.0-18.0) g/dL POC Hgb (14.0-18.0) g/dl Hct (42-52) % POC Hct (42-52) % MCV (80-100) fL MCH (25-34) pg MCHC (32-36) g/dL RDW Std Deviation (36.4-46.3) fL RDW Coeff of Terry (11.5-14.5) % Plt Count (130-400) K/uL MPV (7.4-10.4) fL Immature Gran % (Auto) % Neut % (Auto) % Lymph % (Auto) % [place] % (Auto) % Eos % (Auto) % Baso % (Auto) % Neut # (Auto) (1.4-6.5) K/uL Lymph # (Auto) (1.2-3.4) K/uL [place] # (Auto) (0.11-0.59) K/uL Eos # (Auto) (0-0.5) K/uL Baso # (Auto) (0-0.2) K/uL Immature Gran # (Auto) (0.00-0.02) K/uL PT (9.0-12.0) Seconds INR (0.9-1.1) APTT (21.0-31.0) Seconds PTT Ratio POC Sodium (135-144) mmol/L Sodium 139 (136-145) mmol/L POC Potassium (3.3-5.0) mmol/L Potassium 4.0 (3.5-5.1) mmol/L POC Chloride (101-112) mmol/L Chloride 109 H (98-107) mmol/L Carbon Dioxide 25 (21-32) mmol/L POC Total CO2 (24-31) mmol/L Anion Gap 5.0 (3-11) POC Anion Gap (16-25) mmol/L POC BUN (7-18) mg/dl BUN 13 (7-18) mg/dl Creatinine 0.96 (0.6-1.4) mg/dl POC Creatinine (0.6-1.3) mg/dl Est Cr Clr Drug Dosing 66.0 ml/min Est GFR ( Amer) 91.8 Est GFR (Non-Af Amer) 79.2 BUN/Creatinine Ratio 13.9 (10-20) Glucose 103 H (70-99) mg/dl POC Glucose 105 H (70-99) mg/dl POC Glucose (other) (70-99) mg/dl Calcium 9.1 (8.5-10.1) mg/dl POC Ioniz Calcium [place] (1.12-1.32) mmol/l Magnesium 1.9 (1.8-2.4) mg/dl Total Bilirubin 0.2 (0.2-1) mg/dl AST 21 (15-37) U/L ALT 31 (12-78) U/L Alkaline Phosphatase 73 (45-117) U/L Troponin I < 0.015 (0-0.045) ng/ml Total Protein 7.2 (6.4-8.2) gm/dl Albumin 3.7 (3.4-5.0) gm/dl Globulin 3.5 (2.5-4.0) gm/dl Albumin/Globulin Ratio 1.1 (0.9-2) COVID-19 Eval Order SARS-CoV-2 (PCR) (Negative) Influenza Type A (PCR) (Neg) Influenza Type B (PCR) (Neg) RSV (RT-PCR) (Neg) Blood Type O Negative Antibody Screen NEGATIVE 02/02/21 02/02/21 Range/Units 20:50 20:50 WBC 7.55 (4.8-10.8) K/uL RBC 4.11 L (4.7-6.1) M/uL Hgb 13.4 L (14.0-18.0) g/dL POC Hgb (14.0-18.0) g/dl Hct 39.3 L (42-52) % POC Hct (42-52) % MCV 95.6 (80-100) fL MCH 32.6 (25-34) pg MCHC 34.1 (32-36) g/dL RDW Std Deviation 43.6 (36.4-46.3) fL RDW Coeff of Terry 12.5 (11.5-14.5) % Plt Count 264 (130-400) K/uL MPV 9.3 (7.4-10.4) fL Immature Gran % (Auto) 0.4 % Neut % (Auto) 72.5 % Lymph % (Auto) 17.7 % [place] % (Auto) 7.3 % Eos % (Auto) 1.7 % Baso % (Auto) 0.4 % Neut # (Auto) 5.47 (1.4-6.5) K/uL Lymph # (Auto) 1.34 (1.2-3.4) K/uL [place] # (Auto) 0.55 (0.11-0.59) K/uL Eos # (Auto) 0.13 (0-0.5) K/uL Baso # (Auto) 0.03 (0-0.2) K/uL Immature Gran # (Auto) 0.03 H (0.00-0.02) K/uL PT 9.9 (9.0-12.0) Seconds INR 1.0 (0.9-1.1) APTT 25.1 (21.0-31.0) Seconds PTT Ratio 1.0 POC Sodium (135-144) mmol/L Sodium (136-145) mmol/L POC Potassium (3.3-5.0) mmol/L Potassium (3.5-5.1) mmol/L POC Chloride (101-112) mmol/L Chloride (98-107) mmol/L Carbon Dioxide (21-32) mmol/L POC Total CO2 (24-31) mmol/L Anion Gap (3-11) POC Anion Gap (16-25) mmol/L POC BUN (7-18) mg/dl BUN (7-18) mg/dl Creatinine (0.6-1.4) mg/dl POC Creatinine (0.6-1.3) mg/dl Est Cr Clr Drug Dosing ml/min Est GFR ( Amer) Est GFR (Non-Af Amer) BUN/Creatinine Ratio (10-20) Glucose (70-99) mg/dl POC Glucose (70-99) mg/dl POC Glucose (other) (70-99) mg/dl Calcium (8.5-10.1) mg/dl POC Ioniz Calcium [place] (1.12-1.32) mmol/l Magnesium (1.8-2.4) mg/dl Total Bilirubin (0.2-1) mg/dl AST (15-37) U/L ALT (12-78) U/L Alkaline Phosphatase (45-117) U/L Troponin I (0-0.045) ng/ml Total Protein (6.4-8.2) gm/dl Albumin (3.4-5.0) gm/dl Globulin (2.5-4.0) gm/dl Albumin/Globulin Ratio (0.9-2) COVID-19 Eval Order SARS-CoV-2 (PCR) (Negative) Influenza Type A (PCR) (Neg) Influenza Type B (PCR) (Neg) RSV (RT-PCR) (Neg) Blood Type Antibody Screen Medications Administered Current Inpatient Medications Acetaminophen (Acetaminophen 325 Mg Tab) 650 mg PO Q4H PRN PRN Reason: pain/fever Stop: 03/05/21 01:34 Al Hydrox/Mg Hydrox/Simethicone (Aluminum/Magnesium Susp 30 Ml Udc) 30 ml PO Q6H PRN PRN Reason: Dyspepsia Stop: 03/05/21 01:34 Allopurinol (Allopurinol 300 Mg Tab) 300 mg PO DAILY SONIDO Stop: 03/05/21 08:59 Cilostazol (Cilostazol 100 Mg Tab) 100 mg PO DAILY SONIDO Stop: 03/05/21 08:59 Latanoprost (Latanoprost 0.005% Op Soln 2.5 Ml Btl) 1 drops OP DAILY SONIDO Stop: 03/05/21 08:59 Lisinopril (Lisinopril 20 Mg Tab) 20 mg PO DAILY SONIDO Stop: 03/05/21 08:59 Lovastatin (Lovastatin 20 Mg Tab) 20 mg PO DAILY SONIDO Stop: 03/05/21 08:59 Magnesium Hydroxide (Magnesium Hydroxide Susp 30 Ml Udc) 30 ml PO Q6H PRN PRN Reason: Constipation Stop: 03/05/21 01:34 Nitroglycerin (Nitroglycerin Sl 0.4 Mg/Tab Tab) 0.4 mg SL Q5M PRN PRN Reason: chest pain Stop: 03/05/21 01:34 Ondansetron HCl (Ondansetron Inj 2 Mg/Ml 2 Ml Vial) 4 mg IV Q6H PRN PRN Reason: Nausea Stop: 03/05/21 01:34 Pantoprazole Sodium (Pantoprazole 40 Mg Tab) 40 mg PO QAM SONIDO Stop: 03/05/21 08:59 Polyethylene Glycol (Polyethylene (Miralax) 17 Gm Pack) 17 gm PO DAILY PRN PRN Reason: Constipation Stop: 03/05/21 01:34 Supervising Physician Co-Signing Physician Notes Attending addendum: I have physically seen this patient, have supervised the medical residents activities, and agree with the H&P unless as otherwise noted. Assessment and Plan: Left upper extremity weakness- CT head negative for acute event, but does show small chronic lacunar infarct. CTA neck shows mild cavernous and supraclinoid narrowing of internal carotids. MRI brain without contrast Stroke without TPA order set Consult PT/OT/neurology/speech PAD- Continue cilostazol Hypertension- On lisinopril 20 mg outpatient. Permissive hypertension Dyslipidemia- On lovastatin 20 mg daily. Change to high-dose statin Atorvastatin 40 mg daily Check a fasting lipid panel Right thyroid lobe nodule 11 mm- Work-up in the outpatient setting to continue Remaining orders and notations as noted Resident Activity Tracking Resident Involvement: Resident Care Provided Care Provided: Adult [facility]
[2021-02-03] MEDS ORDERED: ONDANSETRON INJ 2 MG/ML 2 ML VIAL IV PRN (01:35)
[2021-02-03] MEDS ORDERED: POLYETHYLENE (MIRALAX) 17 GM PACK PO PRN (01:35)
[2021-02-03] MEDS ORDERED: ACETAMINOPHEN 325 MG TAB PO PRN (01:35)
[2021-02-03] MEDS ORDERED: ALUMINUM/MAGNESIUM SUSP 30 ML UDC PO PRN (01:35)
[2021-02-03] MEDS ORDERED: MAGNESIUM HYDROXIDE SUSP 30 ML UDC PO PRN (01:35)
[2021-02-03] MEDS ORDERED: NITROGLYCERIN SL 0.4 MG/TAB TAB SL PRN (01:35)
[2021-02-03] MEDS ORDERED: GADOBUTROL 65ML VIAL IV ONE (06:58)
--- NOTE | 2021-02-03 07:03 | CT Scan Report ---
CT head/brain wo con CLINICAL HISTORY: Stroke Like Symptoms COMPARISON STUDY: No previous studies for comparison. TECHNIQUE: Axial CT of the brain is performed from the vertex to the skull base. IV contrast was not administered for this examination. A dose lowering technique was utilized adhering to the principles of ALARA. CT DOSE: FINDINGS: No intra or extra-axial mass lesions are visualized. There is no CT evidence of acute cortical infarc tion. There is no evidence of midline shift. There is no acute hemorrhage. No calvarial fractures ar e visualized. There are patchy white matter hypodensities likely on a small vessel basis. There is a right basal ga nglia lacunar infarct. There is no evidence of pathologic ventricular dilatation. There is right maxillary sinus mucosal thickening. IMPRESSION: No acute intracranial findings ACT 112: Negative or not required by law. Electronically signed by: Kevyn Armendariz M.D. 02/03/2021 7:02 AM
--- NOTE | 2021-02-03 07:25 | CT Scan Report ---
CT angio neck with con CLINICAL HISTORY: Stroke Like Symptoms COMPARISON STUDY: No previous studies for comparison. TECHNIQUE: CT angiography was performed from the aortic arch to the skull base. MIP imaging was perfo rmed. The patient was scanned in a dynamic helical fashion during intravenous administration of 117 c c of Optiray 320. A dose lowering technique was utilized adhering to the principles of ALARA. CT DOSE: 1170.77 mGy.cm Technique: CT angiogram of the carotid and vertebral arteries was obtained using intravenous contrast and 3-D reconstruction. NASCET criteria was utilized. Findings: There is apical pulmonary emphysema. There is a 13 mm left upper lobe pulmonary nodule. This remain s imilar to a prior chest CT dated 11/28/2020. There is a stable 13 mm right lobe thyroid nodule. The right carotid revealed no evidence of aneurysm and no evidence of dissection. There is no evidenc e of hemodynamic significant stenosis. The left carotid revealed no evidence of hemodynamic significant stenosis. There is no evidence of an eurysm. There is no evidence of dissection. There is no evidence of hemodynamically significant vertebral stenosis. There is no evidence of verte bral dissection. IMPRESSION: No evidence of hemodynamically significant carotid or vertebral artery stenosis. No evidence of disse ction. ACT 112: Negative or not required by law. Electronically signed by: Kevyn Armendariz M.D. 02/03/2021 7:23 AM
--- NOTE | 2021-02-03 07:27 | CT Scan Report ---
HEAD CTA HISTORY: Stroke Like Symptoms TECHNIQUE: Multiaxial CT images of the head were performed following the intravenous administration o f contrast to evaluate the major cerebral vessels. Maximum intensity projection images were also obta ined. A dose lowering technique was utilized adhering to the principles of ALARA. COMPARISON: Head CT 02/02/2021. FINDINGS: There is no mass, hematoma, midline shift, or acute infarct. Visualized intracranial r d internship al carotid arteries, distal vertebral arteries, and basilar artery are widely patent. There is no sig nificant stenosis, occlusion, or aneurysm seen within the bilateral ACAs, MCAs, or letterpress setter. Moderate brea cified plaque within the bilateral carotid siphons. IMPRESSION: No significant stenosis, occlusion, or aneurysm within the [place]. ACT 112: Negative or not required by law. Electronically signed by: Mustapha Watt M.D. 02/03/2021 7:26 AM
--- NOTE | 2021-02-03 07:58 | Magnetic Resonance Report ---
MRI OF THE BRAIN WITHOUT AND WITH IV CONTRAST CLINICAL HISTORY: left upper and lower extrem numbness HEADACHES. COMPARISON STUDY: Head CT dated 02/02/2021 TECHNIQUE: MRI of the brain was performed from the vertex to the skull base utilizing various T1 and T2 weighted sequences. Following the IV administration of 6.6 mL of Gadavist contrast, additional enh anced images were obtained. FINDINGS: Sagittal T1, axial diffusion, proton density and T2 weighted axial, coronal FLAIR, and pre and post a xial T1-weighted images were acquired. These were supplemented with post gadolinium coronal T1 weight ed images. No intra or extra-axial mass lesions are visualized. There is a focus of restricted water diffusion within the right parietal vertex indicative of an acut e/subacute infarct. This extends over a length of approximately 3 cm. There is no evidence of ventricular dilatation. Proton density T2-weighted and FLAIR images reveal scattered foci of increased T2 signal within the w jesse matter, likely on a small vessel basis. There is subtle increased FLAIR signal in the region of the right parietal vertex infarct. There are old tiny basal ganglia lacunar infarcts There are no abnormal flow voids. There is no evidence of pathologic enhancement. IMPRESSION: 1. Acute/subacute right parietal vertex infarct. ACT 112: Negative or not required by law. Electronically signed by: Kevyn Armendariz M.D. 02/03/2021 7:57 AM
[2021-02-03 07:59] LABS: Basophils # (auto) 0.02 K/uL (0-0.2); Basophils % (auto) 0.3 %; Eosinophils # (auto) 0.12 K/uL (0-0.5); Eosinophils % (auto) 1.7 %; Hematocrit (blood only) 41.4 % (42-52); Hemoglobin 13.9 g/dL (14.0-18.0); Immature Granulocytes # (auto) 0.03 K/uL (0.00-0.02); Immature Granulocytes % (auto) 0.4 %; Lymphocytes # (auto) 1.27 K/uL (1.2-3.4); Lymphocytes % (auto) 17.8 %; Mean Corpuscular Hemoglobin 32.4 pg (25-34); Mean Corpuscular Hgb Conc 33.6 g/dL (32-36); Mean Corpuscular Volume 96.5 fL (80-100); Mean Platelet Volume 9.5 fL (7.4-10.4); Monocytes # (auto) 0.48 K/uL (0.11-0.59); Monocytes % (auto) 6.7 %; Neutrophils # (auto) 5.21 K/uL (1.4-6.5); Neutrophils % (auto) 73.1 %; Platelet Count 268 K/uL (130-400); RDW Coefficient of Variation 12.7 % (11.5-14.5); RDW Standard Deviation 44.2 fL (36.4-46.3); Red Blood Count 4.29 M/uL (4.7-6.1); White Blood Count 7.13 K/uL (4.8-10.8)
[2021-02-03] MEDS ORDERED: PHARMACIST DISCHARGE MED REC CONSULT PRN (08:23)
[2021-02-03 08:37] LABS: BUN Creatinine Ratio 18.5 (10-20); Calcium 9.3 mg/dl (8.5-10.1); Creatinine Clr Calc Pharmacy 71.2 ml/min; Est GFR (African American) 99.7; Magnesium 2.2 mg/dl (1.8-2.4); Potassium 4.2 mmol/L (3.5-5.1)
[2021-02-03 08:48] LABS: Phosphorus 3.1 mg/dl (2.5-4.9); Thyroid Stimulating Hormone 1.56 uIu/ml (0.300-4.500)
[2021-02-03] MEDS ORDERED: cilostazoL 100 MG TAB PO SCH (09:00)
[2021-02-03] MEDS ORDERED: ASPIRIN 81 MG ECTAB PO SCH (09:00)
[2021-02-03] MEDS ORDERED: PANTOprazole 40 MG TAB PO SCH (09:00)
[2021-02-03] MEDS ORDERED: ENOXAPARIN INJ 40 MG/0.4 ML SYR SQ SCH (09:00)
[2021-02-03] MEDS ORDERED: LOVASTATIN 20 MG TAB PO SCH ×3 (09:00→16:30)
[2021-02-03] MEDS ORDERED: lisinopril 20 MG TAB PO SCH (09:00)
[2021-02-03] MEDS ORDERED: allopurinoL 300 MG TAB PO SCH (09:00)
[2021-02-03] MEDS ORDERED: LATANOPROST 0.005% OP SOLN 2.5 ML BTL OP SCH (09:00)
[2021-02-03 09:54] LABS: Estimated Average Glucose 114 mg/dl; Hemoglobin A1C 5.6 % (4.5-5.6)
--- NOTE | 2021-02-03 14:03 | Neurology Consultation ---
Date of Consultation February 03, 2021 Assessment & Plan (1) Stroke: Silvio Singleton is a 70 yo man w/ PMH of HTN, HLD, PAD, tobacco abuse, h/o nephrolithiasis, known carotid bruit and ascending aortic dilation who p/t [facility] with acute onset of LUE weakness/numbness a/w chest pain and headache. Symptom localization: right posterior frontal/parietal lobe Stroke mechanism: cardioembolic vs lacunar/lipohyalinosis Stroke WorkUp: - CT head: shows no hemorrhage, punctate hypodensity in the right centrum semiovale/basal ganglia, and small chronic infarct in the right cerebellum. - CTA head/neck: shows no LVO, high-grade stenosis or aneurysm, mild diffuse intracranial atherosclerosis is noted - MRI brain: shows acute infarct in the right posterior frontal lobe, chronic infarct in the basal ganglia and cerebellum, mild SVID - TTE: pending - Telemetry: pending - A1c: 5.6 - FLP: 79 - Troponin, TSH: negative, WNL Stroke Management: - Acute treatment: ASA - Continuous cardiac monitoring, 30 day Holter monitor as outpatient if telemetry here unrevealing - Vitals, Neurochecks, NIHSS per unit routine - BP parameters: SBP CAP 180, restart home anti-hypertensives for permissive HTN, IV Labetalol PRN - Complete ischemic stroke workup with TTE without bubble - Consult speech, PT, OT for supportive management - Will halfway house counselor concerning stroke education, smoking cessation, healthy diet, ph ysical activity, weight loss - Follow up with PCP for assistance with outpatient goals (BP <130/80, LDL <70, A1c <7) - Follow up in neurology clinic in 6-8 weeks with VIOLET Mccloud Secondary Stroke Prevention: - Antiplatelet: restart ASA 81mg po daily - Anticoagulation: Not indicated at this time - Statin: change lovastatin to atorvastatin 40mg daily HTN: - BP parameters, as above - Restart home medications with goal of lowering BP to normotension over next 3- 4 days FEN/GI: - Diet: Cardiac HH diet and PO meds given absence of bulbar signs or symptoms - Monitor lytes and replete PRN Glucose Control: - Sliding scale insulin and accuchecks per primary team to avoid hyperglycemia Thank you for this interesting consult. Plan of care was discussed with primary team. Please call with any questions. 60 minutes was spent [id number] with patient, with more than 50% spent on counseling/coordination of care/charting. (2) HTN (hypertension): (3) Dyslipidemia: (4) History of smoking greater than 50 pack years: History of Present Illness Attending Physician: Shwetha Muro MD History of Present Illness Silvio Singleton is a 70 yo man w/ PMH of HTN, HLD, PAD, h/o tobacco abuse, h/o nephrolithiasis, known carotid bruit and ascending aortic dilation who p/t [facility] with acute onset of LUE weakness/numbness a/w chest pain and headache. [employer] ~7:30am on 02/02/21. In the ED, he was afebrile, BP 112/62, heart rate 99, respiratory rate 18, satting 96% on room air. Initial NIH stroke scale 0. Labs notable for WBC 7.55, hemoglobin 13.4 with MCV 95.6, platelets 264, electrolytes are normal, creatinine 0.86, glucose 103, INR 1, LFTs within normal, troponin negative, Covid negative. Imaging independently reviewed. CT head shows no hemorrhage, punctate hypodensity in the right centrum semiovale/basal ganglia, and small chronic infarct in the right cerebellum. CTA head and neck shows no LVO, high- grade stenosis or aneurysm, mild diffuse intracranial atherosclerosis is noted. MRI brain notable for acute infarct in the right posterior frontal lobe, chronic infarct in the basal ganglia and cerebellum, mild SVID. On examination, he reports that he has been having issues with headaches a/w exertion and chest pain. Has been told that this might be from reflux but has never tried nitro for it. Notes that after seeing PCP yesterday, had acute onset of left arm clumsiness and numbness. Feels like symptoms have completely resolved at this time. Patient Features: Admission NIHSS: 0 Admission Modified [place] Scale: 0 Time patient last seen well: 7:30am on 02/02/21 Wake up stroke: No Intubation status: Not intubated Stroke Risk Factors: Hypertension: Y Hyperlipidemia: Y Atrial Fib: N Tobacco: Y Diabetes: N Taking NOAC or warfarin: N Allergies Allergy/AdvReac Type Severity Reaction Status Date / Time No Known Allergies Allergy Unverified 02/02/21 21:26 Home Medications Medication Instructions Recorded Confirmed Type latanoprost 0.005 % eye drops 1 drops OP DAILY ml 07/22/19 02/02/21 History allopurinol 300 mg tablet 300 mg PO DAILY #90 tab 07/24/19 02/02/21 Rx cilostazol 100 mg tablet 100 mg PO DAILY tab 02/02/20 02/02/21 History lisinopril 20 mg tablet 20 mg PO DAILY #90 tab 01/11/21 02/02/21 Rx lovastatin 20 mg tablet 20 mg PO DAILY #90 tab 01/11/21 02/02/21 Rx nitroglycerin 0.4 mg sublingual 0.4 mg SUBLINGUAL Q5M PRN #25 tab 02/02/21 02/02/21 Rx tablet omeprazole 20 mg capsule,delayed 20 mg PO DAILY #30 cap 02/02/21 02/02/21 Rx release Patient History Medical History Aorta disorder Carotid bruit Chest pain Dyslipidemia History of smoking greater than 50 pack years HTN (hypertension) Hyperuricemia PAD (peripheral artery disease) Pulmonary nodule, left S/P extracorporeal shock wave therapy Ureteral calculi Surgical History History of cystoscopy Family History Other No pertinent family history Social History Smoking Status: Former smoker Age Started Using Tobacco: 19; Age Quit Using Tobacco: 65; packs per day: 2; Years Smoked: 46; Number of Years Since Quit: 4; Second Hand Exposure: No; Hx Alcohol Use: No Hx Substance Use: No Preferred Language: Romanian 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 Exam (Neuro) Physical Exam: General Exam: GEN: NAD, sitting down in examination bed. HEENT: No conjunctival injection, no rhinorrhea. CV: RRR on monitor, no significant edema. PULM: Nonlabored respirations on room air. Neuro Exam: MS: Awake and Alert. Oriented to person, place, and date. Speech fluent and appropriate without dysarthria or paraphasic errors. Language intact including naming, comprehension, repetition. Cognition and memory grossly intact. Attention intact. No neglect. CN: Visual michael full, + blink to threat bilaterally. No extinction to double simultaneous stimuli. Unable to visualize fundi on fundoscopic exam. PERRLA OU. EOMI without nystagmus. Facial sensation intact to LT. Facial muscles full and symmetric. Hearing intact to finger rub bilaterally. Uvula midline with symmetric palatal elevation. Shoulder shrug normal. Tongue midline. MOTOR: Normal bulk and tone. No pronator drift. BUE strength 5/5 at deltoids, biceps, triceps, wrist flexors and extensors, and finger flexors bilaterally. BLE strength 5/5 at iliopsoas, hamstrings, quadriceps, tibialis anterior, and gastrocnemius bilaterally. REFLEXES: 1+ at biceps, triceps, brachioradialis, 1+ patella, and absent Achilles bilaterally. Flexor plantar responses bilaterally. SENSORY: Intact to LT throughout, no extinction to double simultaneous stimuli. COORDINATION: Mild dysmetria on [id number] in the LUE, normal in the RUE. GAIT: Deferred due to physical status. NIH STROKE SCALE 1A. Level of Consciousness (0-3) = 0 1B. LOC Questions (0-2) = 0 1C. LOC Commands (0-2) = 0 2. Best Horizontal Gaze (0-2) = 0 3. Visual Michael (0-3) = 0 4. Facial Palsy (0-3) = 0 5. Motor Arm Right (0-4) = 0 Left (0-4) = 0 6. Motor Leg Right (0-4) = 0 Left (0-4) = 0 7. Limb Ataxia (0-2) =1 8. Sensory (0-2) = 0 9. Best Language (0-3) = 0 10. Dysarthria (0-2) = 0 11. Extinction and Inattention (0-2) = 0 NIHSS TOTAL = 1 Results & Data ([facility]) Vital Signs (Past 12 Hours) Vital Signs Temp Pulse Resp BP BP Pulse Ox 02/03/21 11:41 36.7 C 80 22 144/76 H 97 02/03/21 07:51 36.7 C 67 20 142/82 H 96 PG Care Time/CCT Total # of Minutes Spent Total Time Spent with Patient: Total time spent is greater than 50% in coordination of care (as documented) at patient's floor/unit and/or counseling patient: Coding Level of Care Code 47617 Office/Outpt Visit, New Diagnoses Stroke I63.9 HTN (hypertension) I10 Dyslipidemia E78.5 History of smoking greater than 50 pack years Z87.891
--- NOTE | 2021-02-03 15:54 | Electrocardiogram Report ---
Test Reason : Blood Pressure : / mmHG Vent. Rate : 094 BPM Atrial Rate : 094 BPM P-R Int : 160 ms QRS Dur : 098 ms QT Int : 354 ms P-R-T Axes : 057 008 065 degrees QTc Int : 442 ms Normal sinus rhythm Nonspecific ST abnormality Abnormal ECG No previous ECGs available Confirmed by Clay Tello ([id number]) on 02/03/2021 3:53:56 PM Referred By: REFERRED SELF Confirmed By:Herberth Tello
--- NOTE | 2021-02-03 16:00 | Electrocardiogram Report ---
Test Reason : Blood Pressure : / mmHG Vent. Rate : 063 BPM Atrial Rate : 063 BPM P-R Int : 182 ms QRS Dur : 096 ms QT Int : 428 ms P-R-T Axes : 048 -02 016 degrees QTc Int : 437 ms Sinus rhythm with occasional Premature ventricular complexes Low voltage QRS Nonspecific ST abnormality Otherwise normal ECG When compared with ECG of 02-FEB-2021 20:48, (unconfirmed) Premature ventricular complexes are now Present Vent. rate has decreased BY 31 BPM Confirmed by Clay Tello ([id number]) on 02/03/2021 3:59:56 PM Referred By: REFERRED SELF Confirmed By:Herberth Tello
--- NOTE | 2021-02-03 16:59 | XCELERA ---
[id number]
[2021-02-03] MEDS ORDERED: STROKE PATIENT DISCHARGE STA (18:02)
--- NOTE | 2021-02-03 18:10 | Discharge Summary ---
Date of Service February 03, 2021 Admission HPI Per Admitting Provider Silvio Singleton is a 70-year-old male with PMH significant for hypertension, hyperlipidemia, hyperuricemia, peripheral artery disease, aortic dilatation; who presented to the ER following concerns for left arm and leg numbness/tingling over the last day. Patient first noticed the symptoms early yesterday morning predominantly in his left upper extremity, but also began to notice some numbness and tingling in his leg in addition to his arm. [place] like he had some decreased strength in his arm and leg, and was consistently bumping into items on his left hand side without necessarily feeling them. This numbness/tingling extended from his shoulder into his hand with no area spared, and from the groin to the toes with no area spared. He additionally noted that over the last several weeks he has been having some burning type central chest pain that he attributed more to concern for reflux. Did not have the same substernal chest pain/burning today, however was concerned that this numbness tingling in his arm and leg might have been a result of something related with his heart. Took a sublingual nitroglycerin that did not alleviate this numbness and tingling and that is why he ultimately decided to come to the ER. Presently denies any chest pain, burning sensation, nausea, vomiting, headache, numbness or tingling of upper or lower extremity, changes in strength, difficulty moving upper or lower extremities, changes in sensation, lightheadedness, dizziness, changes in vision. Principal Diagnosis Acute ischemic CVA Discharge Exam Constitutional WD/WN, vitals as above Eyes PERRL, conjunctivae normal, anicteric sclerae normal visual wade by confrontation and EOM intact bilaterally; no eyelid abnormality, no anisocoria and no nystagmus ENMT external ear and nose normal, oropharynx normal Neck trachea midline, no thyromegaly Respiratory normal respiratory effort, lungs clear to auscultation Cardiovascular RRR, no murmur, no edema Chest (Breasts) Chest: normal inspection of chest Gastrointestinal (Abdomen) normal bowel sounds, soft, nontender, no hepatosplenomegaly Musculoskeletal Extremities: extremities normal to inspection; no cyanosis and no clubbing Skin no rashes, warm and dry Neurologic PERRL, EOMI, accommodation nl, no face palsy, no dysarthria CN's II-XI intact bilaterally, deep tendon reflexes 2+ bilaterally, moves all extremities, + focal motor deficit (4+/5 strength in the proximal left upper extremity, otherwise 5/5 strength ) and awake; not confused Motor/Sensory: + sensory deficit (Very minimal decreased sensation to light touch in left upper extremity); no pronator drift Gait: no ataxic gait Coordination: normal beolpr-yu-jivs test and normal rapid alternating movements Difficult to test pronator drift as he is a chronic decrease in range of motion at the left elbow status post fracture-he never can pronate on left Psychiatric A+Ox3, euthymic affect Lymphatic no lymphedema Discharge Data Allergies Allergy/AdvReac Type Severity Reaction Status Date / Time No Known Allergies Allergy Unverified 02/02/21 21:26 Consultations 02/02/21 22:15 ED Decision to Admit Stat 02/03/21 08:23 Consult Neurology Routine Ordered Studies 02/02/21 20:52 CT angio head w con Urgent CT angio neck with con Urgent CT head/brain wo con Urgent 02/03/21 07:00 MR brain wo/w con Routine Echocardiogram Hospital Course (1) Stroke: Presented with left-sided weakness and numbness. He was not a TPA candidate because it had been 12 hours since symptoms started by the time he arrived in the ER. Symptoms are now much improved with only minimal weakness and numbness in left upper extremity. CT head negative, CT angiogram head and neck negative MRI of the brain confirms right parietal vertex subacute/acute CVA 3 cm No events on telemetry-sinus rhythm Echocardiogram with possible Lambl's excrescence versus possible small fibroelastoma, but no ASD/PFO, no thrombus Lipid panel controlled but has room to increase to high intensity statin Hemoglobin A1c is normal, troponin negative, TSH normal He is a previous smoker, has history of hypertension, PAD This is most likely secondary to cardioembolic versus lacunar/lipohyalinosis as per neurology -Doing very well, able to ambulate without difficulty, only mild proximal weakness in left upper extremity -Start aspirin 81 mg daily -Change lovastatin to atorvastatin 40 mg daily -Encouraged to cut way down on alcohol use-drinks about 6 beers per day -Encouraged exercise -Continue good blood pressure control with lisinopril -Ordered a 30-day cardiac event monitor to be sent to his house after discharge to look for occult atrial fibrillation -Follow-up with the neurology PA in the clinic in 6 to 8 weeks (2) GERD (gastroesophageal reflux disease): Presented with several weeks of non of burning chest pain that was relieved with Maalox in the ER He does have a history of drinking 6 beers per day and a previous history of smoking Troponin negative and ECG normal With very mild anemia as well -He reports he was prescribed Prevacid as an outpatient but has not started it yet-encouraged him to start this -Consider EGD given increased risk for Rose's esophagus and with mild anemia (3) PAD (peripheral artery disease): continue Pletal, changing statin and adding ASA as above (4) HTN (hypertension): Blood pressures mildly elevated here in the setting of acute stroke -Okay to continue lisinopril at home, BPs are normally very well controlled at home (5) Thyroid nodule: Follow-up as an outpatient with PCP -check TSH (6) Dyslipidemia: Changing to atorvastatin as above (7) Hyperuricemia: Continue allopurinol (8) Ascending aorta dilatation: Mild, stable, follow as an outpatient (9) Anemia: Mild, hemoglobin 13.9, borderline macrocytic Encouraged cessation of alcohol use Follow as an outpatient (10) DVT prophylaxis: Lovenox SQ Disposition-stable for discharge to home Total Time Total Time Spent Total Time Spent (In Minutes): 35 minutes Total Time Includes: Examination of the Patient, Discharge Planning, Medication Reconciliation and Communication With Other Providers (Neurology) Discharge Plan Discharge Items Patient Disposition: Home - Self-Care Reason For Visit: LEFT UPPER AND LOWER EXTREMITY NUMBNESS Discharge Diagnosis: Acute CVA Condition on Discharge: Good Activity: As commented below Bathing: No limitations Exercise/Sports: Gradually increase as tolerated Driving/Machine Use: No driving until strength returned in left arm Non-emergency contact: Primary Care Provider and Neurologist Call non-emergency contact if: you have any medication questions and your symptoms worsen Follow-up/Referrals: Anthony Bazan MD [Primary Care Provider] - 02/08/21 10:00 am (If you have any questions or need to change this appointment, please call [phone].) Chari Meier PA-C [Physician Cloud Engineer] - (Please follow-up in the neurology office in 6 weeks) Diet: Heart Healthy Addtl Attending Provider Instructions: You were admitted and found to have a stroke that caused weakness and numbness in left side of your body. You will be started on aspirin 81 mg once daily for stroke prevention and your cholesterol medication will be changed to atorvastatin 40 mg once daily. It is important that you cut down on the amount of alcohol that you drink on a daily basis. Please follow-up with the neurology PA in the office in 6 to 8 weeks. Please follow-up with your primary care physician within 1 week as scheduled. Risk Factors for Stroke: You can reduce your chances of stroke by working with your medical provider to adopt a healthy lifestyle. Some specific ways to lower your chance of stroke are: * If you are a smoker, now is the time to stop smoking cigarettes * If you are diabetic, improve the control of your blood sugars * Avoid excessive amounts of alcohol * Control high blood pressure * Lose weight if you are overweight * Be sure to lead an active lifestyle * Eat a healthy diet low in salt, cholesterol and fat You should know about other risk factors for stroke that you are unable to control. These include: * Age 55 years or older * Male gender * Certain racial groups: , or / * Family History of Stroke, Mini stroke or Heart Attack * Sickle Cell Disease Follow Up: It is important for you to keep your follow up appointments with your medical provider. Who to Call and When: Medical Emergencies: Call 911 immediately if you experience any of the following warning signs and symptoms of Stroke: * Sudden numbness or weakness of the face, arm or leg, especially on one side of the body * Sudden confusion, trouble speaking or understanding * Sudden trouble seeing in one or both eyes * Sudden trouble walking, dizziness, loss of balance or coordination * Sudden severe headache with no cause Do not delay calling 911 if you experience any warning signs or symptoms of a stroke. Delay in seeking medical attention may affect what treatments can be given to you. . Pending Studies at Discharge: No Stand-Alone Forms: Medications to Prevent Stroke, My [facility] Medications and DC Order Prescriptions: New aspirin 81 mg Tablet,Delayed Release (Dr/Ec) 81 mg PO QAM Qty: 30 RF: 0 atorvastatin 40 mg tablet 40 mg PO DAILY Qty: 30 RF: 0 Continued allopurinol 300 mg tablet 300 mg PO DAILY Qty: 90 RF: 3 lisinopril 20 mg tablet 20 mg PO DAILY Qty: 90 RF: 3 latanoprost 0.005 % drops 1 drops OP DAILY RF: 0 omeprazole 20 mg capsule,delayed release(DR/EC) 20 mg PO DAILY Qty: 30 RF: 5 cilostazol 100 mg tablet 100 mg PO DAILY RF: 0 Discontinued lovastatin 20 mg tablet 20 mg PO DAILY Qty: 90 RF: 3 nitroglycerin 0.4 mg tablet, sublingual 0.4 mg sublingual Q5M PRN (Reason: chest pain) Qty: 25 RF: 0 Discharge Orders: Discharge Order (Routine); Ordered 02/03/21 Ordered By: Shwetha Fleming/Other Patient Handouts: Effects of a Stroke on the Brain ..., Stroke: Taking Medicines, Stroke: Resources and Support, Risk Factors for Stroke, Stroke Prevention Activity, Healthy Lifestyle to Prevent ..., Tests to Diagnose a Stroke Admission Data Admit Date/Time: 02/03/21 00:57 Attending Provider: Shwetha Muro Admit Provider: Emile Zamarripa Primary Care Provider: Anthony Bazan Other Providers: Tonny Horton Christina R. Other Interventions: Discharge Summary Assessment (RN) Last Done: 02/03/21 17:49 Coding Level of Care Code 64879 OBS Care - Discharge Diagnoses Stroke I63.9 GERD (gastroesophageal reflux disease) K21.9 PAD (peripheral artery disease) I73.9 HTN (hypertension) I10 Thyroid nodule E04.1 Dyslipidemia E78.5 Hyperuricemia E79.0 Ascending aorta dilatation I77.810 Anemia D64.9 DVT prophylaxis Z29.9
--- NOTE | 2021-02-03 18:17 | Pharmacy Report ---
Pharmacist Stroke Counseling - Date of Service February 03, 2021 - Scope: Pharmacy has been consulted to provide medication discharge counseling for this patient admitted with ischemic stroke as per the Pharmacist Discharge Counseling for Stroke Patients Protocol. - Medications on Discharge: Home Medications Medication Instructions Recorded Confirmed latanoprost 0.005 % eye drops 1 drops OP DAILY ml 07/22/19 02/02/21 cilostazol 100 mg tablet 100 mg PO DAILY tab 02/02/20 02/02/21 New Rx's Medication Instructions Recorded allopurinol 300 mg tablet 300 mg PO DAILY #90 tab 07/24/19 lisinopril 20 mg tablet 20 mg PO DAILY #90 tab 01/11/21 omeprazole 20 mg capsule,delayed 20 mg PO DAILY #30 cap 02/02/21 release aspirin 81 mg PO QAM #30 tab 02/03/21 atorvastatin 40 mg PO DAILY #30 tab 02/03/21 - Action: The above medications, specifically ones for stroke treatment/prophylaxis, have been reviewed in detail with the patient and/or patient telephone service representative(s) prior to discharge. This includes indication, common adverse reactions, drug interactions, and medication administration. Medication counseling has been employed using the teach-back method to ensure understanding. - Outcome: The patient and/or patient telephone service representative(s) have demonstrated understanding of the medications. Additional comments: * Discharge counseling provided via phone * Patient sounds knowledgeable and aware regarding his medications and changes. He had acute CVA. 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 He is aware to purchase aspirin 81mg OTC. * He admits to using Aleve prn headache/pain; advised against this since he will be on aspirin and is also on cilostazol - explained incr' bleeding risk, including GI ulcers. He agrees to use Tylenol if needed. Thank you for allowing pharmacy to be involved in the care of this patient. Please call [phone] with any additional questions
--- NOTE | 2021-02-04 05:29 | Billing Data ---
Date of Service February 04, 2021 Coding Level of Care Code 42699 OBS Care - Level 3
[2021-02-04] MEDS ORDERED: LOVASTATIN 20 MG TAB PO SCH (16:30)
== END 2021-02-03 18:30 | disposition home or self-care (01) ==
LOC: ED 20:40 → 2N 20:40 → SUATTDRO 02-03 00:57 → 2N 02-03 01:19